=== PATIENT | female | born 1985 | race African-American/Black ===

== ENCOUNTER 2016-12-23 12:49 | Emergency (ER) | payer SELFPAY ==
[~2016-12-23] VITALS: Ht 167.6 cm; Wt 80.0 kg
[2016-12-23 13:33] VITALS: BP 112/61
== END 2016-12-23 16:14 | disposition left against medical advice (07) ==
LOC: ER 13:33
DX: Z53.21 Procedure and treatment not carried out due to patient leaving prior to being seen by health care provider (principal)

== ENCOUNTER 2018-07-07 12:03 | Inpatient (IN) | payer MEDICAID, OTHER ==
[~2018-07-07] VITALS: Ht 167.6 cm; Wt 72.6 kg
[2018-07-07] MEDS ORDERED: ONDANSETRON HCL 4MG/2ML INJ IV STA (13:27)
[2018-07-07] MEDS ORDERED: MORPHINE SULFATE 4 MG/ML CPJ (NOT FOR IM USE) IV STA (13:27)
[2018-07-07 13:46] LABS: BASOPHILS % 0.3 % (0.0-2.0); EOSINOPHILS % 1.5 % (0.0-5.0); HEMATOCRIT. 41.2 % (36.0-48.0); HEMOGLOBIN. 13.7 g/dL (12.0-16.0); LYMPHOCYTES % 21.3 % (20.0-50.0); MEAN CORPUSCULAR HEMOGLOBIN 32.9 pg (28.0-32.0); MEAN PLATELET VOLUME 8.5 fl (7.4-10.4); MONOCYTES % 4.9 % (2.0-8.0); PLATELET 233 x1000/uL (130-400); RED BLOOD CELL COUNT 4.16 mill/uL (4.2-5.4); RED CELL DISTRIBUTION WIDTH 12.6 % (11.6-14.6)
[2018-07-07 13:49] LABS: CHLORIDE 110 mEq/L (98-107)
[2018-07-07 13:53] LABS: PROTHROMBIN TIME 10.4 sec (9.1-11.1)
[2018-07-07 13:54] LABS: HCG SCREEN NEGATIVE
[2018-07-07] MEDS ORDERED: MORPHINE SULFATE 4 MG/ML CPJ (NOT FOR IM USE) IV ONE (14:45)
[2018-07-07] MEDS: HYDROMORPHONE HCL/PF 2MG/ML CPJ IV PRN (17:58)
[2018-07-07] MEDS ORDERED: IPRATROPIUM/ALBUTEROL 0.5-3(2.5)MG/3ML NEB HHN PRN (20:00)
[2018-07-07] MEDS ORDERED: ACETAMINOPHEN 325MG TABLET PO PRN (20:00)
[2018-07-07] MEDS: HYDROCODONE/ACETAMINOPHEN 5/325MG TABLET PO PRN (23:54)
[2018-07-08] MEDS: HYDROMORPHONE HCL/PF 2MG/ML CPJ IV PRN ×6 (00:02→20:59)
[2018-07-08] MEDS: HYDROCODONE/ACETAMINOPHEN 5/325MG TABLET PO PRN ×4 (07:29→23:22)
[2018-07-08] MEDS ORDERED: GABA-290 MT (10:46)
[2018-07-08] MEDS ORDERED: BACL-141 PO (10:46)
[2018-07-08 10:47] VITALS: BP 119/72
[2018-07-08 17:01] LABS: ETHANOL BLOOD < 10 mg/dL
[2018-07-08 17:06] LABS: CREATINE KINASE 216 IU/L (26-192)
[2018-07-08 17:07] LABS: T4 FREE 1.05 ng/dL (0.76-1.46)
[2018-07-08 17:20] LABS: FOLIC ACID (FOLATE) SERUM 18.1 ng/mL (>5.38)
[2018-07-08] MEDS ORDERED: GADOBENATE DIMEGLUMINE 529 MG/ML 10ML IV ONE (17:36)
[2018-07-08 20:00] VITALS: BP 109/67
[2018-07-09] VITALS: BP_SYST 107; BP_SYST 127; BP_DIAS 51; BP_DIAS 77
[2018-07-09] MEDS: HYDROMORPHONE HCL/PF 2MG/ML CPJ IV PRN ×5 (01:55→20:14)
[2018-07-09] MEDS: ONDANSETRON HCL 4MG/2ML INJ IV PRN ×2 (02:41→06:43)
[2018-07-09 04:00] VITALS: BP 133/71
[2018-07-09] MEDS: HYDROCODONE/ACETAMINOPHEN 5/325MG TABLET PO PRN ×5 (04:46→22:23)
[2018-07-09 06:43] LABS: BASOPHILS % 0.4 % (0.0-2.0); EOSINOPHILS % 3.6 % (0.0-5.0); HEMATOCRIT. 38.5 % (36.0-48.0); LYMPHOCYTES % 25.3 % (20.0-50.0); MEAN CORPUSCULAR HEMOGLOBIN 33.5 pg (28.0-32.0); MEAN CORPUSCULAR VOLUME 99.6 fL (81.0-99.0); MEAN PLATELET VOLUME 8.6 fl (7.4-10.4); MONOCYTES % 6.3 % (2.0-8.0); NEUTROPHILS % 64.4 % (40.0-76.0); PLATELET 231 x1000/uL (130-400); RED BLOOD CELL COUNT 3.87 mill/uL (4.2-5.4); RED CELL DISTRIBUTION WIDTH 12.8 % (11.6-14.6)
[2018-07-09 07:01] LABS: CHLORIDE 106 mEq/L (98-107)
[2018-07-09 08:00] VITALS: BP 101/56
[2018-07-09 12:00] VITALS: BP 116/65
[2018-07-09] MEDS: MELOXICAM 7.5MG TABLET PO SCH (15:47)
[2018-07-09 16:00] VITALS: BP 109/66
[2018-07-09 20:00] VITALS: BP 126/76
[2018-07-09] MEDS: GABAPENTIN 300MG CAPSULE PO SCH (22:00)
[2018-07-09] MEDS: BACLOFEN 10MG TABLET PO SCH (22:23)
[2018-07-10] VITALS: BP 107/51
[2018-07-10] MEDS: HYDROMORPHONE HCL/PF 2MG/ML CPJ IV PRN ×6 (00:20→20:01)
[2018-07-10 04:00] VITALS: BP 104/69
[2018-07-10] MEDS: BACLOFEN 10MG TABLET PO SCH ×3 (06:00→22:50)
[2018-07-10] MEDS: GABAPENTIN 300MG CAPSULE PO SCH ×3 (06:00→22:00)
[2018-07-10 08:00] VITALS: BP 92/52
[2018-07-10] MEDS: MELOXICAM 7.5MG TABLET PO SCH (08:34)
[2018-07-10] MEDS: HYDROCODONE/ACETAMINOPHEN 5/325MG TABLET PO PRN ×3 (11:44→22:35)
[2018-07-10 12:15] VITALS: BP 111/65
[2018-07-10] MEDS: ONDANSETRON HCL 4MG/2ML INJ IV PRN (14:01)
[2018-07-10 16:04] VITALS: BP 111/65
[2018-07-10 20:00] VITALS: BP 110/74
[2018-07-11] VITALS (11 sets, daily range): BP systolic 95–140; BP diastolic 50–75
[2018-07-11] MEDS: HYDROMORPHONE HCL/PF 2MG/ML CPJ IV PRN ×5 (01:55→21:48)
[2018-07-11] MEDS: HYDROCODONE/ACETAMINOPHEN 5/325MG TABLET PO PRN ×3 (03:31→19:02)
[2018-07-11] MEDS: GABAPENTIN 300MG CAPSULE PO SCH ×2 (05:57→14:00)
[2018-07-11] MEDS: BACLOFEN 10MG TABLET PO SCH ×3 (05:57→21:42)
[2018-07-11] MEDS: MELOXICAM 7.5MG TABLET PO SCH (08:36)
[2018-07-11] MEDS: ONDANSETRON HCL 4MG/2ML INJ IV PRN (22:58)
[2018-07-12] VITALS: BP 105/76
[2018-07-12] MEDS: HYDROCODONE/ACETAMINOPHEN 5/325MG TABLET PO PRN (00:49)
[2018-07-12 04:00] VITALS: BP 103/53
[2018-07-12] MEDS: HYDROMORPHONE HCL/PF 2MG/ML CPJ IV PRN ×5 (04:06→21:45)
[2018-07-12] MEDS: BACLOFEN 10MG TABLET PO SCH ×3 (06:08→22:00)
[2018-07-12 08:00] VITALS: BP 112/75
[2018-07-12] MEDS: MELOXICAM 7.5MG TABLET PO SCH (08:44)
[2018-07-12 12:00] VITALS: BP 113/70
[2018-07-12 16:00] VITALS: BP 113/76
[2018-07-12 20:00] VITALS: BP 123/64
[2018-07-12] MEDS ORDERED: HYDROCODONE/ACETAMINOPHEN 5/325MG TABLET PO PRN (21:30)
[2018-07-12] MEDS ORDERED: HYDROMORPHONE HCL/PF 2MG/ML CPJ IM PRN (21:30)
[2018-07-13] VITALS: BP 111/51
[2018-07-13 04:00] VITALS: BP 100/66
[2018-07-13] MEDS: BACLOFEN 10MG TABLET PO SCH ×2 (06:00→13:25)
[2018-07-13] MEDS: HYDROMORPHONE HCL/PF 2MG/ML CPJ IV PRN (06:43)
[2018-07-13 08:00] VITALS: BP 116/70
[2018-07-13] MEDS: HYDROMORPHONE HCL 2MG TABLET PO PRN ×2 (08:37→17:46)
[2018-07-13 08:38] VITALS: BP 115/80
[2018-07-13] MEDS: MELOXICAM 7.5MG TABLET PO SCH (08:52)
[2018-07-13 12:00] VITALS: BP 116/72
[2018-07-13 17:46] VITALS: BP 115/80
== END 2018-07-13 18:20 | disposition home health service (06) | DRG 347 ==
LOC: ER 12:03 → 6EST 16:40 → EDBEDREQTM 07-08 06:54 → EDBEDREQSVC 07-08 06:54 → ENRESERV 07-08 07:08 → CANRESERV 07-08 07:08 → ENRESERV 07-08 07:56
PROVIDERS: ADMIT Internal Medicine; ATTEND Internal Medicine
DX: M48.02 Spinal stenosis, cervical region (principal); E87.8 Other disorders of electrolyte and fluid balance, not elsewhere classified; M50.222 Other cervical disc displacement at C5-C6 level; G72.9 Myopathy, unspecified; G81.91 Hemiplegia, unspecified affecting right dominant side; D18.00 Hemangioma unspecified site; J45.909 Unspecified asthma, uncomplicated; M50.31 Other cervical disc degeneration, high cervical region; M53.80 Other specified dorsopathies, site unspecified; G90.50 Complex regional pain syndrome I, unspecified; G89.4 Chronic pain syndrome; K59.00 Constipation, unspecified; R32 Unspecified urinary incontinence; Z82.49 Family history of ischemic heart disease and other diseases of the circulatory system; Z87.891 Personal history of nicotine dependence; M54.9 Dorsalgia, unspecified; F41.9 Anxiety disorder, unspecified; F32.9 Major depressive disorder, single episode, unspecified; M54.10 Radiculopathy, site unspecified
CPT/HCPCS: 36415; 70551; 70552; 72141; 72142; 72157; 72158; 80048; 80320; 82550; 82607; 82746; 83036; 84439; 84443; 84481; 84484; 84703; 93970; 96374; 96375; 96376; 97163; 97166; 99285; A6261; A9577; C1893; J1170; J2270; J2405; G0480

== ENCOUNTER 2021-07-20 12:17 | Emergency (ER) | payer OTHER ==
[~2021-07-20] VITALS: Ht 167.6 cm; Wt 81.0 kg
[~2021-07-20 12:17] MED LIST: BACL-141 PO; GABA-290 MT
[2021-07-20] MEDS ORDERED: KETOROLAC 60MG/2ML VIAL IM STA (12:41)
[2021-07-20] MEDS ORDERED: HYDROCODONE/ACETAMINOPHEN 5/325MG TABLET PO ONE (13:00)
[2021-07-20] MEDS ORDERED: ONDANSETRON 4MG ODT PO ONE (13:00)
[2021-07-20 14:26] VITALS: BP 131/78
[2021-07-20] MEDS ORDERED: HYDR-4001 MT (15:21)
[2021-07-20] MEDS ORDERED: IBUP-2029 MT (15:21)
== END 2021-07-20 15:35 | disposition home or self-care (01) ==
LOC: ER 12:17
DX: S99.911A Unspecified injury of right ankle, initial encounter (principal); F12.10 Cannabis abuse, uncomplicated; J45.909 Unspecified asthma, uncomplicated; Z98.890 Other specified postprocedural states; X58.XXXA Exposure to other specified factors, initial encounter; Y93.89 Activity, other specified; Y92.89 Other specified places as the place of occurrence of the external cause; Y99.8 Other external cause status
CPT/HCPCS: 29515; 73610; 73630; 96372; 99284; J1885; Q0162

== ENCOUNTER 2022-09-10 13:34 | Emergency (ER) | payer MEDICAID, OTHER ==
[~2022-09-10] VITALS: Ht 167.6 cm; Wt 84.0 kg
[~2022-09-10 13:34] MED LIST changes: +HYDR-4001 MT; +IBUP-2029 MT
[2022-09-10 15:58] VITALS: BP 127/77
[2022-09-10] MEDS ORDERED: HYDROCODONE/ACETAMINOPHEN 5/325MG TABLET PO STA (15:58)
[2022-09-10] MEDS ORDERED: LIDOCAINE HCL/PF 1% 10 MG/ML 5ML VIAL INFIL ONE (16:00)
[2022-09-10] MEDS ORDERED: BACITRACIN ZINC OINT UDPKT TOP ONE (16:00)
[2022-09-10] MEDS ORDERED: CEPHALEXIN 250MG CAPSULE PO ONE (16:00)
[2022-09-10] MEDS ORDERED: ONDANSETRON HCL 4MG/2ML INJ IM ONE (17:45)
[2022-09-10] MEDS ORDERED: ACETAMINOPHEN 325MG TABLET PO STA (18:16)
[2022-09-10] MEDS ORDERED: T3 PO (18:59)
[2022-09-10] MEDS ORDERED: CEPH500T MT (18:59)
== END 2022-09-10 19:36 | disposition home or self-care (01) ==
LOC: ER 13:34
DX: S41.112A Laceration without foreign body of left upper arm, initial encounter (principal); S80.02XA Contusion of left knee, initial encounter; S70.311A Abrasion, right thigh, initial encounter; F12.10 Cannabis abuse, uncomplicated; J45.909 Unspecified asthma, uncomplicated; Z98.890 Other specified postprocedural states; W18.30XA Fall on same level, unspecified, initial encounter; Y04.0XXA Assault by unarmed brawl or fight, initial encounter; Y93.89 Activity, other specified; Y92.89 Other specified places as the place of occurrence of the external cause; Y99.8 Other external cause status
CPT/HCPCS: 12001; 73030; 73562; 96372; 99284; J2405; J3490; Z7610